=== PATIENT | female | born 1970 | race Caucasian/White ===

== ENCOUNTER → 2020-12-31 | Outpatient (CLI) | payer MEDICARE, OTHER ==
[~2020-12-31] MED LIST: CYCL10; OXYC10TA19 PO; Percocet 10-321 EACH PO
[2021-01-10 13:09] LABS: COTININE <10.0 ng/mL (.); NICOTINE <10.0 ng/mL (.)
== END ==
LOC: PLD 16:41 → LAB SHORT 16:41 → EDSTATUS 11-26 13:50 → LAB FUT 11-26 13:50
PROVIDERS: Neurological Surgery
DX: F17.200 Nicotine dependence, unspecified, uncomplicated (principal)
CPT/HCPCS: G0480

== ENCOUNTER 2021-01-26 04:21 | Emergency (ER) | payer MEDICARE ==
[~2021-01-26] VITALS: Ht 172.7 cm; Wt 77.1 kg
[2021-01-26] MEDS ORDERED: CYCL10 (05:05)
[2021-01-26] MEDS ORDERED: OXYC10TA19 PO (05:05)
[2021-02-02] MEDS ORDERED: Percocet 10-321 EACH PO (01:12)
== END 2021-01-26 06:20 | disposition home or self-care (01) ==
LOC: ER 04:21
DX: M54.12 Radiculopathy, cervical region (principal)
CPT/HCPCS: 96372; 99283-25; J1100; J1885; J3010

== ENCOUNTER 2021-02-02 00:52 | Emergency (ER) | payer MEDICARE, OTHER ==
[~2021-02-02] VITALS: Ht 172.7 cm; Wt 77.1 kg
== END 2021-02-02 01:23 | disposition home or self-care (01) ==
LOC: ER 00:52
DX: M54.12 Radiculopathy, cervical region (principal); Z79.899 Other long term (current) drug therapy; Z87.891 Personal history of nicotine dependence
CPT/HCPCS: 99283; A9270

== ENCOUNTER 2022-05-13 12:19 | Emergency (ER) | payer MEDICARE, OTHER ==
[~2022-05-13] VITALS: Ht 172.7 cm; Wt 79.4 kg
[2022-05-13] MEDS ORDERED: AMOCLA875 PO (13:25)
== END 2022-05-13 14:00 | disposition home or self-care (01) ==
LOC: ER 12:19
DX: S61.250A Open bite of right index finger without damage to nail, initial encounter (principal); W54.0XXA Bitten by dog, initial encounter; Z87.891 Personal history of nicotine dependence
CPT/HCPCS: 72040; 73030; 90714; A9270

== ENCOUNTER → 2022-12-21 | Outpatient (CLI) | payer MEDICARE, OTHER ==
[~2022-12-21] MED LIST changes: +AMOCLA875 PO
[2022-12-21 15:53] LABS: U Amphetamine Screen Not Detected; U Barbituate Screen Not Detected; U Benzodiazapine Screen DETECTED; U Buprenorphine Screen Not Detected; U Cannabinoids Screen DETECTED; U Cocaine Screen Not Detected; U Methadone Screen Not Detected; U Methamphetamine Screen Not Detected; U Opiates Screen Not Detected; U Oxycodone Screen DETECTED; U Phencyclidine Screen Not Detected; U Propoxyphene Screen Not Detected
== END ==
LOC: LAB 14:50 → LAB SHORT 14:50
DX: F11.90 Opioid use, unspecified, uncomplicated (principal); Z79.899 Other long term (current) drug therapy